=== PATIENT | female | born 1955 | race Caucasian/White ===

== ENCOUNTER → 2020-09-01 14:13 | Outpatient (CLI) | payer MEDICARE, SELFPAY ==
[2020-09-01 14:57] LABS: Creatinine, Serum 0.78 mg/dL (0.55-1.02); EST Glomerular Filtration Rate 79 mL/min (>60); Est Glom Filt Rate - Afr Amer 96 mL/min (>60)
--- NOTE | 2020-09-01 15:00 | CT_ITS ---
STUDY: CT ABDOMEN AND PELVIS WITH CONTRAST REASON FOR EXAM: Female, 65 years old. CRAMPING RADIATION DOSAGE (If Supplied By Facility): CTDIvol = ( 11.47 ) mGy, DLP = ( 296.38 ) mGycm TECHNIQUE: Transaxial images were obtained from the dome of the diaphragm to the symphysis pubis without oral contrast. Oral and amp; IV Readi-CAT and amp; 100mL Isovue-300 was administered. Sagittal and coronal images were reconstructed. Individualized dose optimization techniques were used for this CT. COMPARISON: None. FINDINGS: There is mild interstitial thickening and emphysematous changes at the lung bases.. The visualized portions of the heart are within normal limits. Nonspecific fatty infiltration of the liver. There are multiple cysts of varying sizes. Bile ducts are not dilated.. Contracted thick-walled gallbladder without calcified stones possibly physiologic however if concern for gallbladder disease ultrasound recommended. Normal spleen. Normal pancreas. Normal bilateral adrenal glands. Normal right kidney. Normal left kidney. There is thickening of the rugal folds of the stomach which may be consistent with nonspecific gastritis.. Nonspecific ileus pattern with diffuse fecal retention throughout the colon. No evidence for small bowel obstruction.. Postsurgical changes status post resection of the rectum. No evidence for acute appendicitis. Atherosclerotic changes of the aorta without evidence for aneurysm.. Normal inferior vena cava. Normal retroperitoneum. Normal urinary bladder. Uterus not visualized consistent with hysterectomy. Normal abdominal wall. Lumbar spine demonstrates degenerative change. CT/Abdomen/Pelvis WITH Contrast IMPRESSION: Findings which may be consistent with nonspecific gastritis and diffuse ileus. No evidence for small bowel obstruction or pneumoperitoneum. Contracted thick-walled gallbladder without calcified stones possibly physiologic. If concern for gallbladder disease ultrasound recommended Nonspecific fatty infiltration of liver with multiple hepatic cysts. Electronically Signed: Reid Cornejo MD at 16:09 EST , Service support ,
[2020-09-02 07:32] LABS: CREATININE FINGERSTICK 0.99 mg/dL (0.55-1.02)
== END ==
PROVIDERS: PCP Family Medicine
DX: R10.84 Generalized abdominal pain (principal)
CPT/HCPCS: 36415; 74177; 82565; Q9967; A4216